=== PATIENT | male | born 1925 | race Caucasian/White ===

== ENCOUNTER 2017-01-15 08:56 | Emergency (ER) | payer MEDICARE ==
[2017-01-15] MEDS ORDERED: Aspirin Low Dose CHEW TAB* 81 MG PO ONE (09:25)
[2017-01-15 09:39] LABS: Hematocrit 32 % (42-52); Hemoglobin 10.4 g/dl (14.0-18.0); Mean Corpuscular HGB Conc 32 g/dl (31-36); Mean Corpuscular Hemoglobin 27 pg (27-31); Mean Corpuscular Volume 84 fL (80-94); Mean Platelet Volume 8 um3 (7.4-10.4); Red Blood Count 3.85 10^6/ul (4.0-5.4); Red Cell Distribution Width 17 % (10.5-15); White Blood Count 8.9 10^3/ul (3.5-10.8)
[2017-01-15 09:54] LABS: Albumin 3.9 g/dL (3.2-5.2); BUN/Creatinine Ratio 16.2 (8-20); Calcium 9.9 mg/dL (8.6-10.3); EGFR African American 24.2 (>60); EGFR Non-African American 18.8 (>60); Globulin 3.6 g/dL (2-4); Potassium 4.7 mmol/L (3.5-5.0); Total Bilirubin 0.3 mg/dL (0.2-1.0); Total Protein 7.5 g/dL (6.4-8.9)
--- NOTE | 2017-01-15 10:26 | RAD ---
Indication: Weakness, dizziness. Comparison: June 06, 2016 Technique: Upright AP 0945 hours Report: Mild linear subsegmental atelectasis or scarring in the RIGHT midlung zone suprahilar region without gross change. Negative for pleural effusion or pneumothorax. Negative for cardiomegaly. Significantly tortuous thoracic aorta similar to the prior exam accounting for mild leftward rotation. Unremarkable central pulmonary vasculature. Advanced arthropathy of the LEFT shoulder. IMPRESSION: No evidence for acute intrathoracic disease.
[2017-01-15 15:14] VITALS: BP 136/66
--- NOTE | 2017-01-18 18:29 | ED ---
Madison Obregon Claudia, scribed for Giovanny Villarreal MD on 01/15/17 at 1020 . Complex/Multi-Sys Presentation - HPI Summary HPI Summary: 89 year old male presents to the ED with multi-sx. Pt notes that she has been taking care of him for the past 6-8 months and is unable to continue due to his worsening condition. Pt notes that he is unable to go to the restroom alone, ambulate alone or eat without assistance. notes that she thinks he needs more assistance than she can provide at this time. Pt also has PMHx of dementia. Pt denies any recent cold sx. It is noted by the family that the pt has declined significantly since the last time he was in the hospital. Pt denies any CP, dysuria, hematuria. - History Of Current Complaint Chief Complaint: EDWeakness Time Seen by Provider: 01/15/17 09:24 Hx Obtained From: Patient Onset/Duration: Gradual Onset Timing: Constant Associated Signs And Symptoms: Negative: Dysuria, Hematemesis - Allergies/Home Medications Allergies/Adverse Reactions: Allergies Allergy/AdvReac Type Severity Reaction Status Date / Time No Known Allergies Allergy Verified 06/06/16 14:27 PMH/Surg Hx/FS Hx/Imm Hx Previously Healthy: Yes Endocrine/Hematology History: Reports: Other Endocrine/Hematological Disorders - thyroid cancer Cardiovascular History: Reports: Hx Hypercholesterolemia, Hx Hypertension GI History: Reports: Hx Gastroesophageal Reflux Disease History: Reports: Other Problems/Disorders - CKD Musculoskeletal History: Reports: Hx Osteoporosis Sensory History: Reports: Hx Contacts or Glasses Opthamlomology History: Reports: Hx Contacts or Glasses Neurological History: Reports: Hx Dementia, Other Neuro Impairments/Disorders - alzheimer - Cancer History Cancer Type, Location and Year: PROSTATE CA 15 YEARS AGO. throid cancer - Surgical History Surgery Procedure, Year, and Place: PROSTATE REMOVED 15 YEARS AGO - Immunization History Date of Tetanus Vaccine: 2006 Date of Influenza Vaccine: 2016 Infectious Disease History: No Infectious Disease History: Denies: Traveled Outside the [place] in Last 30 Days - Family History Known Family History: Positive: Other - prostate cancer (father) - Social History Occupation: Retired Lives: With Family Alcohol Use: None Substance Use Type: Reports: None Smoking Status (MU): Former Smoker Review of Systems Constitutional: Negative Negative: Fever, Chills Eyes: Negative Negative: Erythema ENT: Negative Negative: Sore Throat Cardiovascular: Negative Negative: Chest Pain Respiratory: Negative Negative: Shortness Of Breath, Cough Gastrointestinal: Negative Negative: Abdominal Pain, Vomiting, Nausea Genitourinary: Negative Negative: dysuria, hematuria Musculoskeletal: Negative Negative: Myalgia, Edema Skin: Negative Negative: Rash Neurological: Negative Psychological: Normal All Other Systems Reviewed And Are Negative: Yes Physical Exam - Summary Physical Exam Summary: Constitutional: Well-developed, Well-nourished, Alert. (-) Distressed Skin: Warm, Dry HENT: Normocephalic; Atraumatic Eyes: Conjunctiva normal Neck: Musculoskeletal ROM normal neck. (-) JVD, (-) Stridor, (-) Tracheal deviation Cardio: Rhythm regular, rate normal, Heart sounds normal; Intact distal pulses; The pedal pulses are 2+ and symmetric. Radial pulses are 2+ and symmetric. (-) Murmur Pulmonary/Chest wall: Effort normal. (-) Respiratory distress, (-) Wheezes, (-) Rales Abd: Soft, (-) Tenderness, (-) Distension, (-) Guarding, (-) Rebound Musculoskeletal: (-) Edema Lymph: (-) Cervical adenopathy Neuro: Alert, DISORIENTED Psych: Mood and affect Normal Triage Information Reviewed: Yes Vital Signs On Initial Exam: Initial Vitals Temp Pulse Resp BP Pulse Ox 97.4 F 61 18 143/70 96 01/15/17 08:59 01/15/17 08:59 01/15/17 08:59 01/15/17 08:59 01/15/17 08:59 Vital Signs Reviewed: Yes - Stambaugh Coma Scale Coma Scale Total: 15 Diagnostics - Vital Signs Vital Signs Temp Pulse Resp BP Pulse Ox 01/15/17 10:14 59 98 01/15/17 09:03 97.6 F 61 18 143/70 97 01/15/17 08:59 97.4 F 61 18 143/70 96 - Laboratory Lab Results: Lab Results 01/15/17 01/15/17 01/15/17 Range/Units 09:20 09:20 09:20 WBC 8.9 (3.5-10.8) 10^3/ul RBC 3.85 L (4.0-5.4) 10^6/ul Hgb 10.4 L (14.0-18.0) g/dl Hct 32 L (42-52) % MCV 84 (80-94) fL MCH 27 (27-31) pg MCHC 32 (31-36) g/dl RDW 17 H (10.5-15) % Plt Count 334 (150-450) 10^3/ul MPV 8 (7.4-10.4) um3 Neut % (Auto) 60.8 (38-83) % Lymph % (Auto) 22.1 L (25-47) % Rincon % (Auto) 9.2 H (1-9) % Eos % (Auto) 6.7 H (0-6) % Baso % (Auto) 1.2 (0-2) % Absolute Neuts (auto) 5.4 (1.5-7.7) 10^3/ul Absolute Lymphs (auto) 2.0 (1.0-4.8) 10^3/ul Absolute Monos (auto) 0.8 (0-0.8) 10^3/ul Absolute Eos (auto) 0.6 (0-0.6) 10^3/ul Absolute Basos (auto) 0.1 (0-0.2) 10^3/ul Absolute Nucleated RBC 0 10^3/ul Nucleated RBC % 0 Sodium 137 (133-145) mmol/L Potassium 4.7 (3.5-5.0) mmol/L Chloride 104 (101-111) mmol/L Carbon Dioxide 24 (22-32) mmol/L Anion Gap 9 (2-11) mmol/L BUN 51 H (6-24) mg/dL Creatinine 3.14 H (0.67-1.17) mg/dL Est GFR ( Amer) 24.2 (>60) Est GFR (Non-Af Amer) 18.8 (>60) BUN/Creatinine Ratio 16.2 (8-20) Glucose 96 (70-100) mg/dL Lactic Acid 1.0 (0.5-2.0) mmol/L Calcium 9.9 (8.6-10.3) mg/dL Total Bilirubin 0.30 (0.2-1.0) mg/dL AST 16 (13-39) U/L ALT 8 (7-52) U/L Alkaline Phosphatase 84 (34-104) U/L Troponin I 0.00 (<0.04) ng/mL B-Natriuretic Peptide ( - 100) pg/mL Total Protein 7.5 (6.4-8.9) g/dL Albumin 3.9 (3.2-5.2) g/dL Globulin 3.6 (2-4) g/dL Albumin/Globulin Ratio 1.1 (1-3) 01/15/17 Range/Units 09:20 WBC (3.5-10.8) 10^3/ul RBC (4.0-5.4) 10^6/ul Hgb (14.0-18.0) g/dl Hct (42-52) % MCV (80-94) fL MCH (27-31) pg MCHC (31-36) g/dl RDW (10.5-15) % Plt Count (150-450) 10^3/ul MPV (7.4-10.4) um3 Neut % (Auto) (38-83) % Lymph % (Auto) (25-47) % Rincon % (Auto) (1-9) % Eos % (Auto) (0-6) % Baso % (Auto) (0-2) % Absolute Neuts (auto) (1.5-7.7) 10^3/ul Absolute Lymphs (auto) (1.0-4.8) 10^3/ul Absolute Monos (auto) (0-0.8) 10^3/ul Absolute Eos (auto) (0-0.6) 10^3/ul Absolute Basos (auto) (0-0.2) 10^3/ul Absolute Nucleated RBC 10^3/ul Nucleated RBC % Sodium (133-145) mmol/L Potassium (3.5-5.0) mmol/L Chloride (101-111) mmol/L Carbon Dioxide (22-32) mmol/L Anion Gap (2-11) mmol/L BUN (6-24) mg/dL Creatinine (0.67-1.17) mg/dL Est GFR ( Amer) (>60) Est GFR (Non-Af Amer) (>60) BUN/Creatinine Ratio (8-20) Glucose (70-100) mg/dL Lactic Acid (0.5-2.0) mmol/L Calcium (8.6-10.3) mg/dL Total Bilirubin (0.2-1.0) mg/dL AST (13-39) U/L ALT (7-52) U/L Alkaline Phosphatase (34-104) U/L Troponin I (<0.04) ng/mL B-Natriuretic Peptide 80 ( - 100) pg/mL Total Protein (6.4-8.9) g/dL Albumin (3.2-5.2) g/dL Globulin (2-4) g/dL Albumin/Globulin Ratio (1-3) Result Diagrams: 01/15/17 09:20 01/15/17 09:20 Lab Statement: Any lab studies that have been ordered have been reviewed, and results considered in the medical decision making process. - Radiology CXR Xray Interpretation: No Acute Changes - NO EVIDENCE FOR ACUTE INTRATHORACIC DISEASE Radiology Interpretation Completed By: Radiologist - EKG 10:11 Cardiac Rate: Bradycardia - 58 beats/min EKG Rhythm: Sinus Bradycardia EKG Interpretation: NO STEMI Complex Multi-Symp Course/Dx Assessment/Plan: Pt will be admitted with dx of failure to thrive and dementia and further care regarding assitive living sitations will be discussed upon admission. - Diagnoses Provider Diagnoses: Failure to thrive, Dementia - Physician Notifications Discussed Care Of Patient With: Discussed further care of the pt with Dr. Sarkar. The pt can be admitted but it is on hold until the family sign a financial waiver and accept finanical responsibility for the admission. After displaying this to the and son they now decline the admission and decided to take the pt home and find an assisted program on their own. Time Discussed With Above Provider: 11:41 Discharge - Discharge Plan Condition: Stable Disposition: HOME Patient Education Materials: Failure to Thrive (ED), Dementia (ED) Referrals: Ellis Hawk MD [Primary Care Provider] - 1 Day (PLEASE FOLLOW UP TOMORROW ) The documentation as recorded by the Madison arriaga Claudia accurately reflects the service I personally performed and the decisions made by me, Giovanny Villarreal MD.
== END 2017-01-15 15:14 | disposition home or self-care (01) ==
LOC: ED 08:56
DX: R62.7 Adult failure to thrive (principal); F03.90 Unspecified dementia, unspecified severity, without behavioral disturbance, psychotic disturbance, mood disturbance, and anxiety; Z87.891 Personal history of nicotine dependence
CPT/HCPCS: 36415; 71010; 80053; 83605; 83880; 84484; 85025; 93005; 99283; A9270-GY